=== PATIENT | female | born 1980 | race African-American/Black ===

== ENCOUNTER 2018-09-18 16:10 | Emergency (ER) | payer SELFPAY ==
[~2018-09-18] VITALS: Ht 157.5 cm; Wt 77.1 kg
[2018-09-18] MEDS ORDERED: diphenhydrAMINE 50 MG/ML VIAL IVP ONE (16:45)
[2018-09-18] MEDS ORDERED: IV NORMAL SALINE 1000ML BAG 1,000 ML IV ONE (16:45)
[2018-09-18] MEDS ORDERED: METOCLOPRAMIDE HCL 10 MG/2 ML VIAL. IV ONE (16:45)
--- NOTE | 2018-09-18 16:46 | PHYS DOC ---
Adult General Chief Complaint Chief Complaint: HEADACHE HPI HPI Patient is a 37 year old female presented to ER today for evaluation of headache for the last 3 days. Patient said the light and noise makes her headache worse. Patient denies any fever, no neck pain, no injury. Patient denies any low vision. Review of Systems Review of Systems Constitutional: Denies fever or chills [] Eyes: Denies change in visual acuity, redness, or eye pain. HENT: Denies nasal congestion or sore throat [] Respiratory: Denies cough or shortness of breath [] Cardiovascular: No additional information not addressed in HPI [] GI: Denies abdominal pain, nausea, vomiting, bloody stools or diarrhea [] : Denies dysuria or hematuria [] Musculoskeletal: Denies back pain or joint pain [] Integument: Denies rash or skin lesions [] Neurologic: Positive for headache, no focal weakness or sensory changes [] Endocrine: Denies polyuria or polydipsia [] All other systems were reviewed and found to be within normal limits, except as documented in this note. Current Medications Current Medications Current Medications Medications (Trade) Dose Ordered Sig/Jackie Start Time Stop Time Status Last Admin Dose Admin Diphenhydramine HCl (Benadryl) 25 mg 1X ONCE 09/18/18 16:45 09/18/18 17:33 DC 09/18/18 17:36 25 MG Ketorolac Tromethamine (Toradol 30mg Vial) 30 mg 1X ONCE 09/18/18 17:30 09/18/18 17:33 DC 09/18/18 17:39 30 MG Metoclopramide HCl (Reglan Vial) 10 mg 1X ONCE 09/18/18 16:45 09/18/18 17:33 DC 09/18/18 17:35 10 MG Sodium Chloride 1,000 ml @ 1,000 mls/hr 1X ONCE 09/18/18 16:45 09/18/18 17:44 DC 09/18/18 17:06 1,000 MLS/HR Allergies Allergies Allergies Coded Allergies Type Severity Reaction Last Updated Verified No Known Drug Allergies 09/18/18 No Physical Exam Physical Exam Constitutional: Well developed, well nourished, no acute distress, non-toxic appearance. [] HENT: Normocephalic, atraumatic, bilateral external ears normal, oropharynx moist, no oral exudates, nose normal. [] Eyes: PERRLA, EOMI, conjunctiva normal, no discharge. [] Neck: Normal range of motion, no tenderness, supple, no stridor. [] Cardiovascular:Heart rate regular rhythm, no murmur [] Lungs & Thorax: Bilateral breath sounds clear to auscultation [] Abdomen: Bowel sounds normal, soft, no tenderness, no masses, no pulsatile masses. [] Skin: Warm, dry, no erythema, no rash. [] Back: No tenderness, no CVA tenderness. [] Extremities: No tenderness, no cyanosis, no clubbing, ROM intact, no edema. [] Neurologic: Alert and oriented X 3, normal motor function, normal sensory function, no focal deficits noted. [] Psychologic: Affect normal, judgement normal, mood normal. [] Current Patient Data Vital Signs Vital Signs Date Time Temp Pulse Resp B/P (MAP) Pulse Ox O2 Delivery O2 Flow Rate FiO2 09/18/18 16:44 100.4 87 17 184/105 (131) 99 Room Air 100.4 EKG EKG [] Radiology/Procedures Radiology/Procedures [] Course & Med Decision Making Course & Med Decision Making Pertinent Labs and Imaging studies reviewed. (See chart for details) Patient was given medication in the ER, she feel much better. CT scan of her head was normal. Dragon Disclaimer Dragon Disclaimer This electronic medical record was generated, in whole or in part, using a voice recognition dictation system. Departure Departure Impression: Primary Impression: Headache Disposition: 01 HOME, SELF-CARE Condition: IMPROVED Referrals: NO PCP (PCP) follow up with your doctor as needed Patient Instructions: General Headache Without Cause Scripts Butalbital/Aspirin/Caffeine (FIORINAL 50-325-40 MG CAPSULE) 1 Each Capsule 1 EACH PO Q4HRS PRN for HEADACHE, #20 CAP Prov: HEBERT MENDEZ DO 09/18/18 HEBERT MENDEZ DO Sep 18, 2018 16:46
--- NOTE | 2018-09-18 17:19 | RAD ---
CT HEAD WO CONTRAST History: Headache for 3 days Comparison: None. Technique: Noncontrast CT imaging was performed of the head. Exposure: One or more of the following individualized dose reduction techniques were utilized for this examination: 1. Automated exposure control 2. Adjustment of the mA and/or kV according to patient size 3. Use of iterative reconstruction technique. Findings: No acute extra-axial or parenchymal hemorrhage is identified. There is no significant intra-axial mass effect, midline shift, or extra-axial fluid collection. The drake-white differentiation of the major vascular territories is preserved. The ventricles, sulci, and cisterns are within normal limits in size and configuration. The mastoid air cells and the visualized paranasal sinuses are aerated. No acute calvarial abnormality is identified. Impression: 1. No acute intracranial abnormality is identified. Electronically signed by: Erwin Chowdhury MD (09/18/2018 5:17 PM) [id number]
[2018-09-18] MEDS ORDERED: KETOROLAC 30 MG/ML VIAL. IV ONE (17:30)
[2018-09-18 17:58] VITALS: BP 134/77
[2018-09-18] MEDS ORDERED: BUTA1CAP31 PO (18:02)
== END 2018-09-18 18:12 | disposition home or self-care (01) ==
LOC: ER 16:10
DX: R51 Headache (principal)
CPT/HCPCS: 70450; 96374; 96375; 99284; J1200; J1885; J2765; J7030

== ENCOUNTER 2019-10-14 11:47 | Emergency (ER) | payer SELFPAY ==
[~2019-10-14] VITALS: Ht 152.4 cm; Wt 81.6 kg
[~2019-10-14 11:47] MED LIST: BUTA1CAP31 PO
[2019-10-14 12:46] LABS: BILIRUBIN,URINE SMALL (NEG); CLARITY,URINE TURBID; NITRITE,URINE NEGATIVE (NEG); PROTEIN,URINE NEGATIVE (NEG-TRACE)
[2019-10-14] MEDS ORDERED: IV NORMAL SALINE 1000ML BAG 1,000 ML IV ONE (13:00)
[2019-10-14] MEDS ORDERED: fentaNYL PF VIAL 100 MCG/2 ML VIAL IV ONE (13:00)
[2019-10-14] MEDS ORDERED: ONDANSETRON PF 4 MG/2 ML VIAL. IV ONE (13:00)
[2019-10-14 13:01] LABS: COLOR,URINE YELLOW
[2019-10-14 13:02] LABS: SQUAMOUS EPITHELIAL CELL,UR MANY /LPF
[2019-10-14 13:03] LABS: BACTERIA,URINE 0 /HPF (0-FEW); RBC,URINE 20-40 /HPF (0-2)
[2019-10-14 13:47] LABS: BASO % 0 % (0-3); EOS # 0.1 x10^3/uL (0.0-0.7); EOS % 1 % (0-3); HEMATOCRIT 43.2 % (36.0-47.0); HEMOGLOBIN 14.3 g/dL (12.0-15.5); LYMPH # 2.9 x10^3/uL (1.0-4.8); LYMPH % 31 % (24-48); MEAN CORPUSCULAR HEMOGLOBIN 27 pg (25-35); MEAN CORPUSCULAR HGB CONC 33 g/dL (31-37); MEAN CORPUSCULAR VOLUME 82 fL (79-100); MONO # 0.6 x10^3/uL (0.0-1.1); MONO % 6 % (0-9); NEUT # 5.7 x10^3/uL (1.8-7.7); NEUT % 62 % (31-73); PLATELET COUNT 335 x10^3/uL (140-400); RED BLOOD COUNT 5.25 x10^6/uL (3.50-5.40); RED CELL DISTRIBUTION WIDTH 13.8 % (11.5-14.5); WHITE BLOOD COUNT 9.3 x10^3/uL (4.0-11.0)
[2019-10-14 13:52] VITALS: BP 150/98
--- NOTE | 2019-10-14 13:54 | RAD ---
Examination: Ultrasound abdomen limited HISTORY: History of right upper quadrant pain COMPARISON: None available FINDINGS: The pancreas is not well-visualized.The liver length measures 14.5 cm. No evidence of gallstones. The common bile duct measures 3 mm in diameter.The right kidney measures 11.7 x 4.8 x 5.1 cm. The visualized IVC is within normal limits of dimension. IMPRESSION: Unremarkable exam. Electronically signed by: Garret Beatty MD (10/14/2019 1:51 PM) [id number]
[2019-10-14 13:57] LABS: CALCIUM 9.3 mg/dL (8.5-10.1); CREATININE 0.8 mg/dL (0.6-1.0); GFR 97.7; POTASSIUM 3.8 mmol/L (3.5-5.1)
[2019-10-14 14:03] LABS: ALBUMIN 3.8 g/dL (3.4-5.0); ALBUMIN/GLOBULIN RATIO 0.8 (1.0-1.7); MAGNESIUM 1.8 mg/dL (1.8-2.4); TOTAL BILIRUBIN 0.5 mg/dL (0.2-1.0); TOTAL PROTEIN 8.3 g/dL (6.4-8.2)
--- NOTE | 2019-10-14 14:04 | PHYS DOC ---
Past Medical History Past Medical History: No Pertinent History Past Surgical History: Colectomy, Splenectomy Additional Past Surgical Histo: TRAUMATIC INJURY OF ABDOMEN Smoking Status: Current Every Day Smoker Alcohol Use: None Drug Use: Marijuana General Adult EDM: Chief Complaint: BACK INJURY HPI: HPI: Patient is a 38 year old [f__sex] who presents with [] Review of Systems: Review of Systems: Constitutional: Denies fever or chills. [] Eyes: Denies change in visual acuity. [] HENT: Denies nasal congestion or sore throat. [] Respiratory: Denies cough or shortness of breath. [] Cardiovascular: Denies chest pain or edema. [] GI: Denies abdominal pain, nausea, vomiting, bloody stools or diarrhea. [] : Denies dysuria. [] Musculoskeletal: Denies back pain or joint pain. [] Integument: Denies rash. [] Neurologic: Denies headache, focal weakness or sensory changes. [] Endocrine: Denies polyuria or polydipsia. [] Lymphatic: Denies swollen glands. [] Psychiatric: Denies depression or anxiety. [] Heart Score: Risk Factors: Risk Factors: DM, Current or recent (<one month) smoker, HTN, HLP, family history of CAD, obesity. Risk Scores: Score 0 - 3: 2.5% MACE over next 6 weeks - Discharge Home Score 4 - 6: 20.3% MACE over next 6 weeks - Admit for Clinical Observation Score 7 - 10: 72.7% MACE over next 6 weeks - Early Invasive Strategies Current Medications: Current Medications Medications (Trade) Dose Ordered Sig/[facility] Start Time Stop Time Status Last Admin Dose Admin Fentanyl Citrate (Fentanyl 2ml Vial) 50 mcg 1X ONCE 10/14/19 13:00 10/14/19 13:01 DC 10/14/19 13:07 50 MCG Ondansetron HCl (Zofran) 4 mg 1X ONCE 10/14/19 13:00 10/14/19 13:01 DC 10/14/19 13:07 4 MG Sodium Chloride 1,000 ml @ 1,000 mls/hr 1X ONCE 10/14/19 13:00 10/14/19 13:59 DC 10/14/19 13:07 1,000 MLS/HR Allergies: Allergies: Allergies Coded Allergies Type Severity Reaction Last Updated Verified No Known Drug Allergies 09/18/18 No Physical Exam: PE: Constitutional: Well developed, well nourished, no acute distress, non-toxic appearance. [] HENT: Normocephalic, atraumatic, bilateral external ears normal, oropharynx moist, no oral exudates, nose normal. [] Eyes: PERRLA, EOMI, conjunctiva normal, no discharge. [] Neck: Normal range of motion, no tenderness, supple, no stridor. [] Cardiovascular:Heart rate regular rhythm, no murmur [] Lungs & Thorax: Bilateral breath sounds clear to auscultation [] Abdomen: Bowel sounds normal, soft, no tenderness, no masses, no pulsatile masses. [] Skin: Warm, dry, no erythema, no rash. [] Back: No tenderness, no CVA tenderness. [] Extremities: No tenderness, no cyanosis, no clubbing, ROM intact, no edema. [] Neurologic: Alert and oriented X 3, normal motor function, normal sensory function, no focal deficits noted. [] Psychologic: Affect normal, judgement normal, mood normal. [] Current Patient Data: Labs: Laboratory Tests Test 10/14/19 12:30 10/14/19 12:40 10/14/19 13:15 Urine Collection Type Unknown Urine Color Yellow Urine Clarity Turbid Urine pH 6.0 (<5.0-8.0) Urine Specific Chambers 1.025 (1.000-1.030) Urine Protein Negative mg/dL (NEG-TRACE) Urine Glucose (UA) Negative mg/dL (NEG) Urine Ketones (Stick) Trace mg/dL (NEG) Urine Blood Small (NEG) Urine Nitrite Negative (NEG) Urine Bilirubin Small (NEG) Urine Urobilinogen Dipstick 2.0 mg/dL (0.2 mg/dL) Urine Leukocyte Esterase Small (NEG) Urine RBC 20-40 /HPF (0-2) Urine WBC 1-4 /HPF (0-4) Urine Squamous Epithelial Cells Many /LPF Urine Bacteria 0 /HPF (0-FEW) Urine Mucus Marked /LPF POC Urine HCG, Qualitative Hcg negative (Negative) White Blood Count 9.3 x10^3/uL (4.0-11.0) Red Blood Count 5.25 x10^6/uL (3.50-5.40) Hemoglobin 14.3 g/dL (12.0-15.5) Hematocrit 43.2 % (36.0-47.0) Mean Corpuscular Volume 82 fL (79-100) Mean Corpuscular Hemoglobin 27 pg (25-35) Mean Corpuscular Hemoglobin Concent 33 g/dL (31-37) Red Cell Distribution Width 13.8 % (11.5-14.5) Platelet Count 335 x10^3/uL (140-400) Neutrophils (%) (Auto) 62 % (31-73) Lymphocytes (%) (Auto) 31 % (24-48) Monocytes (%) (Auto) 6 % (0-9) Eosinophils (%) (Auto) 1 % (0-3) Basophils (%) (Auto) 0 % (0-3) Neutrophils # (Auto) 5.7 x10^3/uL (1.8-7.7) Lymphocytes # (Auto) 2.9 x10^3/uL (1.0-4.8) Monocytes # (Auto) 0.6 x10^3/uL (0.0-1.1) Eosinophils # (Auto) 0.1 x10^3/uL (0.0-0.7) Basophils # (Auto) 0.0 x10^3/uL (0.0-0.2) Sodium Level 140 mmol/L (136-145) Potassium Level 3.8 mmol/L (3.5-5.1) Chloride Level 100 mmol/L (98-107) Carbon Dioxide Level 27 mmol/L (21-32) Anion Gap 13 (6-14) Blood Urea Nitrogen 8 mg/dL (7-20) Creatinine 0.8 mg/dL (0.6-1.0) Estimated GFR (Cockcroft-Gault) 97.7 BUN/Creatinine Ratio 10 (6-20) Glucose Level 105 mg/dL (70-99) H Calcium Level 9.3 mg/dL (8.5-10.1) Magnesium Level Pending Total Bilirubin Pending Aspartate Amino Transferase (AST) Pending Alanine Aminotransferase (ALT) Pending Alkaline Phosphatase Pending Total Protein Pending Albumin Pending Albumin/Globulin Ratio Pending Lipase Pending Laboratory Tests 10/14/19 13:15 Laboratory Tests 10/14/19 13:15 Vital Signs: Vital Signs Date Time Temp Pulse Resp B/P (MAP) Pulse Ox O2 Delivery O2 Flow Rate FiO2 10/14/19 11:55 98.9 102 16 137/103 (114) 100 Room Air 98.9 EKG: EKG: [] Radiology/Procedures: Radiology/Procedures: PROCEDURE: ABDOMEN LTD Examination: Ultrasound abdomen limited HISTORY: History of right upper quadrant pain COMPARISON: None available FINDINGS: The pancreas is not well-visualized.The liver length measures 14.5 cm. No evidence of gallstones. The common bile duct measures 3 mm in diameter.The right kidney measures 11.7 x 4.8 x 5.1 cm. The visualized IVC is within normal limits of dimension. IMPRESSION: Unremarkable exam.[] PROCEDURE: CT ABDOMEN PELVIS WO CONTRAST EXAM: CT Abdomen and Pelvis without IV contrast INDICATION: Right flank pain and hematuria. TECHNIQUE: Multi-detector row CT images were acquired from the lung bases through the abdomen and pelvis without the use of IV contrast. Sagittal and coronal images were acquired from the transaxial data. All CT scans performed at this facility utilize dose optimization techniques as appropriate to the exam, including the following: Automated exposure control and adjustment of the mA and/or KV according to patient size (this includes techniques or standardized protocols for targeted exams where dose is indication/reason for exam). ORAL CONTRAST: None COMPARISON: Limited abdominal ultrasound of the same day FINDINGS: The absence of IV contrast limits evaluation of soft tissue pathology. LOWER CHEST: Unremarkable LIVER: Unremarkable BILIARY SYSTEM: Gallbladder is unremarkable. Bile ducts are not dilated. PANCREAS: Masslike soft tissue fullness to the pancreatic head is evident. SPLEEN: Unremarkable ADRENALS: Unremarkable KIDNEYS & URETERS: Unremarkable BLADDER: Unremarkable REPRODUCTIVE ORGANS: Bilateral ovarian enlargement measuring 4.8 cm on the right and 4.9 cm on the left is present. The uterus appears unremarkable. GASTROINTESTINAL: There is evidence of previous bowel surgery in the left upper quadrant. No findings of bowel obstruction or perforation. There is mild wall thickening in the gastric antrum. The appendix shows borderline thickening of the midportion to 8 mm without associated periappendiceal soft tissue stranding. MESENTERY/PERITONEUM/RETROPERITONEUM: Soft tissue stranding around the celiac axis and SMA is present. VASCULAR: Unremarkable LYMPH NODES: There are enlarged mesenteric and retroperitoneal lymph nodes, such as a 10 mm right common iliac lymph node on axial image 132 of series 2. OSSEOUS & SOFT TISSUES: Unremarkable IMPRESSION: 1. No evidence of urinary tract obstruction or kidney stones on noncontrast CT imaging. No specific findings to explain hematuria is identified. 2. There is nonspecific fullness to the pancreatic head with retroperitoneal soft tissue stranding that could represent acute pancreatitis or sequelae of a pancreatic head mass. Recommend contrast enhanced CT imaging on abdominal MRI with MRCP when clinically feasible in further evaluation. 3. Upper normal thickness to the appendix without periappendiceal soft tissue stranding or inflammation. 4. Bilateral enlarged ovaries. Although this could be a reflection of ovarian hyperstimulation or bilateral dermoids, further imaging evaluation by pelvic ultrasound to assess for ovarian torsion could be beneficial. Discussed with the ordering provider Efren Molina by telephone at 2:48 PM on 10/14/2019 PROCEDURE: CT ABD PELV W/ IV CONTRST ONLY Exam: CT of abdomen and pelvis without and with contrast INDICATION: Right flank pain and hematuria TECHNIQUE: Sequential axial images through the abdomen and pelvis obtained before and after the administration of 75 mL of Omni 300 IV contrast. Sagittal and coronal reformatted images were reconstructed from the axial data and reviewed. Comparisons: CT abdomen pelvis without contrast same day FINDINGS: Heart size is normal. No pericardial effusion. Visualized lung bases are clear. No pleural effusion. Liver, spleen, gallbladder and adrenals are unremarkable. Redemonstrated mild fullness of the pancreatic head. There is no pancreatic ductal dilatation. Mild adjacent haziness in the peripancreatic fat surrounding the pancreatic head. No peripancreatic fluid collection. Kidneys demonstrate symmetric enhancement. No perinephric inflammation or hydronephrosis. No renal or ureteral calculi are identified. Bladder is decompressed not well evaluated. Uterus is nonenlarged. Bilateral cystic lesions at the adnexa bilaterally, likely cystic change at the ovaries. Post surgical changes involving the left lower quadrant small bowel is noted. Large and small bowel are unremarkable. No free intra-abdominal air or fluid. No obstruction. Abdominal aorta has a normal course and caliber. Abdominal vasculature is patent. No enlarged intra-abdominal lymph nodes are identified. IMPRESSION: 1. No discrete pancreatic mass identified. 2. Again demonstrated fullness at the pancreatic head with mild adjacent peripancreatic fat haziness. Correlate with lipase for acute pancreatitis. 3. Other persistent findings as described above. Course & Med Decision Making: Course & Med Decision Making Pertinent Labs and Imaging studies reviewed. (See chart for details) 1444- Call from Dr. Moore [] Shanda Disclaimer: Shanda Disclaimer: This electronic medical record was generated, in whole or in part, using a voice recognition dictation system. Departure Departure Impression: Primary Impression: Abdominal pain, RUQ (right upper quadrant) Additional Impressions: N&V (nausea and vomiting) Qualified Codes: R11.2 - Nausea with vomiting, unspecified Strain of lumbar paraspinal muscle Qualified Codes: S39.012A - Strain of muscle, fascia and tendon of lower back, initial encounter Dysmenorrhea Disposition: HOME, SELF-CARE Condition: STABLE Referrals: NO PCP (PCP) JACOB PINEDO Jr, MD Patient Instructions: Abdominal Pain (Nonspecific), Back Pain, Adult, [id number], Dysmenorrhea, [id number], Nausea and Vomiting, [id number] Additional Instructions: Fill prescriptions and take as directed. Activity as tolerated. Follow up with Dr. Pinedo about your irregular menstrual cycles. Recommend clear liquids for 24 hours then try bland foods like bananas, rice, toast, and applesauce, advance your diet as tolerated. Try taking [id number] pepcid 20 mg at bedtime daily for 1-2 weeks to help with abdominal pain. Return to the ER if your symptoms worsen or you develop a fever. Scripts Cyclobenzaprine Hcl (CYCLOBENZAPRINE HCL) 10 Mg Tablet 1 TAB PO TID PRN for PAIN for 10 Days, #30 TAB 0 Refills Prov: PARADISE TROY APRN 10/14/19 Ondansetron (ONDANSETRON ODT) 4 Mg Tab.rapdis 1 TAB PO PRN Q6-8HRS PRN for NAUSEA/VOMITING, #16 TAB 0 Refills Prov: PARADISE TROY DRY MILL OPERATOR 10/14/19 PARADISE TROY DRY MILL OPERATOR Oct 14, 2019 14:04
[2019-10-14] MEDS ORDERED: KETOROLAC 15 MG/ML VIAL. IV ONE (14:15)
--- NOTE | 2019-10-14 14:52 | RAD ---
EXAM: CT Abdomen and Pelvis without IV contrast INDICATION: Right flank pain and hematuria. TECHNIQUE: Multi-detector row CT images were acquired from the lung bases through the abdomen and pelvis without the use of IV contrast. Sagittal and coronal images were acquired from the transaxial data. All CT scans performed at this facility utilize dose optimization techniques as appropriate to the exam, including the following: Automated exposure control and adjustment of the mA and/or KV according to patient size (this includes techniques or standardized protocols for targeted exams where dose is indication/reason for exam). ORAL CONTRAST: None COMPARISON: Limited abdominal ultrasound of the same day FINDINGS: The absence of IV contrast limits evaluation of soft tissue pathology. LOWER CHEST: Unremarkable LIVER: Unremarkable BILIARY SYSTEM: Gallbladder is unremarkable. Bile ducts are not dilated. PANCREAS: Masslike soft tissue fullness to the pancreatic head is evident. SPLEEN: Unremarkable ADRENALS: Unremarkable KIDNEYS & URETERS: Unremarkable BLADDER: Unremarkable REPRODUCTIVE ORGANS: Bilateral ovarian enlargement measuring 4.8 cm on the right and 4.9 cm on the left is present. The uterus appears unremarkable. GASTROINTESTINAL: There is evidence of previous bowel surgery in the left upper quadrant. No findings of bowel obstruction or perforation. There is mild wall thickening in the gastric antrum. The appendix shows borderline thickening of the midportion to 8 mm without associated periappendiceal soft tissue stranding. MESENTERY/PERITONEUM/RETROPERITONEUM: Soft tissue stranding around the celiac axis and SMA is present. VASCULAR: Unremarkable LYMPH NODES: There are enlarged mesenteric and retroperitoneal lymph nodes, such as a 10 mm right common iliac lymph node on axial image 132 of series 2. OSSEOUS & SOFT TISSUES: Unremarkable IMPRESSION: 1. No evidence of urinary tract obstruction or kidney stones on noncontrast CT imaging. No specific findings to explain hematuria is identified. 2. There is nonspecific fullness to the pancreatic head with retroperitoneal soft tissue stranding that could represent acute pancreatitis or sequelae of a pancreatic head mass. Recommend contrast enhanced CT imaging on abdominal MRI with MRCP when clinically feasible in further evaluation. 3. Upper normal thickness to the appendix without periappendiceal soft tissue stranding or inflammation. 4. Bilateral enlarged ovaries. Although this could be a reflection of ovarian hyperstimulation or bilateral dermoids, further imaging evaluation by pelvic ultrasound to assess for ovarian torsion could be beneficial. Discussed with the ordering provider Efren Molina by telephone at 2:48 PM on 10/14/2019 Electronically signed by: Isabel Moore MD (10/14/2019 2:49 PM) [id number]
[2019-10-14] MEDS ORDERED: IOHEXOL 300 MG/ML 100ML VIAL. IV ONE (16:00)
--- NOTE | 2019-10-14 16:13 | RAD ---
Exam: CT of abdomen and pelvis without and with contrast INDICATION: Right flank pain and hematuria TECHNIQUE: Sequential axial images through the abdomen and pelvis obtained before and after the administration of 75 mL of Omni 300 IV contrast. Sagittal and coronal reformatted images were reconstructed from the axial data and reviewed. Comparisons: CT abdomen pelvis without contrast same day FINDINGS: Heart size is normal. No pericardial effusion. Visualized lung bases are clear. No pleural effusion. Liver, spleen, gallbladder and adrenals are unremarkable. Redemonstrated mild fullness of the pancreatic head. There is no pancreatic ductal dilatation. Mild adjacent haziness in the peripancreatic fat surrounding the pancreatic head. No peripancreatic fluid collection. Kidneys demonstrate symmetric enhancement. No perinephric inflammation or hydronephrosis. No renal or ureteral calculi are identified. Bladder is decompressed not well evaluated. Uterus is nonenlarged. Bilateral cystic lesions at the adnexa bilaterally, likely cystic change at the ovaries. Post surgical changes involving the left lower quadrant small bowel is noted. Large and small bowel are unremarkable. No free intra-abdominal air or fluid. No obstruction. Abdominal aorta has a normal course and caliber. Abdominal vasculature is patent. No enlarged intra-abdominal lymph nodes are identified. IMPRESSION: 1. No discrete pancreatic mass identified. 2. Again demonstrated fullness at the pancreatic head with mild adjacent peripancreatic fat haziness. Correlate with lipase for acute pancreatitis. 3. Other persistent findings as described above. Exposure: One or more of the following in the visualized dose reduction techniques were utilized for this examination: 1. Automated exposure control 2. Adjustment of the MA and/or KV according to patient size 3. Use of iterative of reconstructive technique Electronically signed by: Janell Melvin MD (10/14/2019 4:10 PM) [id number]
[2019-10-14] MEDS ORDERED: CYCL10TA2 PO (16:45)
[2019-10-14] MEDS ORDERED: ONDA4TAB12 PO (16:45)
== END 2019-10-14 16:54 | disposition home or self-care (01) ==
LOC: ER 11:47
DX: S39.012A Strain of muscle, fascia and tendon of lower back, initial encounter (principal); R10.11 Right upper quadrant pain; N94.6 Dysmenorrhea, unspecified; R11.2 Nausea with vomiting, unspecified; F17.200 Nicotine dependence, unspecified, uncomplicated; F12.90 Cannabis use, unspecified, uncomplicated; Z90.89 Acquired absence of other organs; Z98.890 Other specified postprocedural states; V89.2XXA Person injured in unspecified motor-vehicle accident, traffic, initial encounter; Y93.89 Activity, other specified; Y92.89 Other specified places as the place of occurrence of the external cause; Y99.8 Other external cause status
CPT/HCPCS: 36415; 74176; 74177; 76705; 80053; 81001; 81025; 83690; 83735; 85025; 87086; 96361; 96374; 96375; 99285; J1885; J2060; J2405; J3010; J7030; Q9967

== ENCOUNTER 2020-12-29 14:31 | Emergency (ER) | payer SELFPAY ==
[~2020-12-29] VITALS: Ht 167.6 cm; Wt 79.5 kg
[~2020-12-29 14:31] MED LIST changes: +CYCL10TA2 PO; +ONDA4TAB12 PO
[2020-12-29 15:17] LABS: BASO % 1 % (0-3); EOS # 0.1 x10^3/uL (0.0-0.7); EOS % 1 % (0-3); HEMATOCRIT 36.3 % (36.0-47.0); HEMOGLOBIN 12.1 g/dL (12.0-15.5); LYMPH # 2.2 x10^3/uL (1.0-4.8); LYMPH % 31 % (24-48); MEAN CORPUSCULAR HEMOGLOBIN 27 pg (25-35); MEAN CORPUSCULAR HGB CONC 34 g/dL (31-37); MEAN CORPUSCULAR VOLUME 80 fL (79-100); MONO # 0.4 x10^3/uL (0.0-1.1); MONO % 5 % (0-9); NEUT # 4.4 x10^3/uL (1.8-7.7); NEUT % 63 % (31-73); PLATELET COUNT 279 x10^3/uL (140-400); RED BLOOD COUNT 4.51 x10^6/uL (3.50-5.40); RED CELL DISTRIBUTION WIDTH 16.4 % (11.5-14.5)
[2020-12-29 15:33] LABS: CALCIUM 9.3 mg/dL (8.5-10.1); GFR 74.7; POTASSIUM 3.5 mmol/L (3.5-5.1)
[2020-12-29 15:40] LABS: ALBUMIN 3.7 g/dL (3.4-5.0); ALBUMIN/GLOBULIN RATIO 0.9 (1.0-1.7); TOTAL BILIRUBIN 0.8 mg/dL (0.2-1.0); TOTAL PROTEIN 7.7 g/dL (6.4-8.2)
[2020-12-29] MEDS ORDERED: CONTRAST GIVEN. MC PRN (15:45)
[2020-12-29] MEDS ORDERED: IOHEXOL 350 MG/ML 100 ML VIAL. IV ONE (15:45)
--- NOTE | 2020-12-29 16:03 | RAD ---
EXAM: CT angiography of the chest with intravenous contrast. HISTORY: Shortness of breath. TECHNIQUE: Computed tomographic images of the chest were obtained following the administration of int ravenous contrast according to angiography protocol. Multiplanar reformatting was performed and three dimensional maximum intensity projection images were obtained. *One or more of the following individualized dose reduction techniques were utilized for this examina tion: 1. Automated exposure control. 2. Adjustment of the mA and/or kV according to patient size. 3. Use of iterative reconstruction technique. COMPARISON: None. FINDINGS: The exam is extremely limited due to patient motion and suboptimal contrast opacification o f the distal pulmonary arteries. No central embolism is seen. However, the possibility of a segmental or subsegmental embolism is not excluded on this exam. The thoracic aorta is normal in caliber. Ther e is a bovine aortic arch branching pattern, a normal variant. There is a prominent subcarinal lymph node or fluid within the pericardial recess, difficult to assess given motion. There is no pneumothor ax or pleural effusion. There is no consolidation. There is bilateral lower lobe predominant groundgl ass opacity with septal line thickening suggesting interstitial infiltrate. There is lingular atelect asis or scarring. There is hepatomegaly and hepatic steatosis. There is no acute osseous finding. IMPRESSION: 1. Severely limited exam due to patient motion and suboptimal contrast opacification of the pulmonary arteries. No central pulmonary embolism is seen. The possibly distal embolism is not excluded on thi s exam. 2. Suspected bilateral lower lobe predominant interstitial infiltrate. There is no consolidated pneum onia. 3. Hepatomegaly and hepatic steatosis. 4. Prominent subcarinal lymph node or fluid within a pericardial recess. Electronically signed by: Kellie Mcgee MD (12/29/2020 4:00 PM) [id number]
[2020-12-29 17:03] VITALS: BP 175/106
[2020-12-29] MEDS ORDERED: PRED50TA PO (17:10)
[2020-12-29] MEDS ORDERED: HYDR-2145 PO (17:10)
[2020-12-29] MEDS ORDERED: AZIT250T PO (17:10)
--- NOTE | 2020-12-29 17:11 | ED.ADGEN ---
Past Medical History Past Medical History: No Pertinent History Past Surgical History: Colectomy, Splenectomy Additional Past Surgical Histo: TRAUMATIC INJURY OF ABDOMEN Smoking Status: Current Every Day Smoker Alcohol Use: None Drug Use: Marijuana General Adult EDM: Chief Complaint: ANXIETY/PANIC ATTACK HPI: HPI: Patient is a 40-year-old female with no known past medical history who presents to the emergency room complaining of chest pain and shortness of breath. Patient states that she started having this chest tightness last night with some mild shortness of breath. She has had a mild cough but denies any kind of fever. She states she was feeling better this morning so she went to work. At some point at work patient started having what appeared to be a panic attack and they called her . He brought her to the emergency room here and upon arrival patient had a presyncopal episode. Upon arrival to the emergency room patient is panicked and crying. She states she is short of breath and her chest hurts. She has never had anything like this previously. She has not seen a physician in several years. Review of Systems: Review of Systems: Complete ROS is negative unless otherwise documented in HPI Current Medications: Current Medications Medications (Trade) Dose Ordered Sig/Jackie Start Time Stop Time Status Last Admin Dose Admin Dexamethasone Sodium Phosphate (Decadron) 10 mg 1X ONCE 12/29/20 17:15 12/29/20 17:16 Info (CONTRAST GIVEN -- Rx MONITORING) 1 each PRN DAILY PRN 12/29/20 15:45 12/31/20 15:44 Iohexol (Omnipaque 350 Mg/ml) 100 ml 1X ONCE 12/29/20 15:45 12/29/20 15:46 DC 12/29/20 15:52 100 ML Lorazepam (Ativan Inj) 1 mg 1X ONCE 12/29/20 15:00 12/29/20 15:01 DC Allergies: Allergies: Allergies Coded Allergies Type Severity Reaction Last Updated Verified No Known Drug Allergies 09/18/18 No Physical Exam: PE: General: Awake, alert, moderate distress, anxious HEENT: Atraumatic, EOMI, PERRL, airway patent, moist oral mucosa Neck: Supple, trachea midline Respiratory: CTA bilaterally, tachypnea, no wheezing CV: Tachycardia, no murmur, cap refill <2 GI: Soft, nondistended, nontender, no masses MSK: No obvious deformities Skin: Warm, dry, intact Neuro: A&O x3, speech NL, sensory and motor grossly intact, no focal deficits Psych: Anxious, tearful, not suicidal or homicidal Current Patient Data: Labs: Laboratory Tests Test 12/29/20 14:36 12/29/20 14:46 12/29/20 15:10 Glucose (Fingerstick) 108 mg/dL (70-99) H White Blood Count 7.0 x10^3/uL (4.0-11.0) Red Blood Count 4.51 x10^6/uL (3.50-5.40) Hemoglobin 12.1 g/dL (12.0-15.5) Hematocrit 36.3 % (36.0-47.0) Mean Corpuscular Volume 80 fL (79-100) Mean Corpuscular Hemoglobin 27 pg (25-35) Mean Corpuscular Hemoglobin Concent 34 g/dL (31-37) Red Cell Distribution Width 16.4 % (11.5-14.5) H Platelet Count 279 x10^3/uL (140-400) Neutrophils (%) (Auto) 63 % (31-73) Lymphocytes (%) (Auto) 31 % (24-48) Monocytes (%) (Auto) 5 % (0-9) Eosinophils (%) (Auto) 1 % (0-3) Basophils (%) (Auto) 1 % (0-3) Neutrophils # (Auto) 4.4 x10^3/uL (1.8-7.7) Lymphocytes # (Auto) 2.2 x10^3/uL (1.0-4.8) Monocytes # (Auto) 0.4 x10^3/uL (0.0-1.1) Eosinophils # (Auto) 0.1 x10^3/uL (0.0-0.7) Basophils # (Auto) 0.0 x10^3/uL (0.0-0.2) Sodium Level 140 mmol/L (136-145) Potassium Level 3.5 mmol/L (3.5-5.1) Chloride Level 102 mmol/L (98-107) Carbon Dioxide Level 25 mmol/L (21-32) Anion Gap 13 (6-14) Blood Urea Nitrogen 9 mg/dL (7-20) Creatinine 1.0 mg/dL (0.6-1.0) Estimated GFR (Cockcroft-Gault) 74.7 BUN/Creatinine Ratio 9 (6-20) Glucose Level 102 mg/dL (70-99) H Calcium Level 9.3 mg/dL (8.5-10.1) Total Bilirubin 0.8 mg/dL (0.2-1.0) Aspartate Amino Transferase (AST) 11 U/L (15-37) L Alanine Aminotransferase (ALT) 15 U/L (14-59) Alkaline Phosphatase 59 U/L (46-116) Troponin I Quantitative 0.029 ng/mL (0.000-0.055) XW-Ebx-P-Type Natriuretic Peptide 3223 pg/mL (0-124) H Total Protein 7.7 g/dL (6.4-8.2) Albumin 3.7 g/dL (3.4-5.0) Albumin/Globulin Ratio 0.9 (1.0-1.7) L POC Urine HCG, Qualitative Hcg negative (Negative) Laboratory Tests 12/29/20 14:46 Laboratory Tests 12/29/20 14:46 EKG: EKG: [] Heart Score: C/O Chest Pain: Yes HEART Score for Chest Pain: HEART Score for Chest Pain Response (Comments) Value History Slighlty/Non-Suspicious 0 ECG Normal 0 Age < 45 0 Risk Factors No Risk Factors 0 Troponin < Normal Limit 0 Total 0 Risk Factors: Risk Factors: DM, Current or recent (<one month) smoker, HTN, HLP, family history of CAD, obesity. Risk Scores: Score 0 - 3: 2.5% MACE over next 6 weeks - Discharge Home Score 4 - 6: 20.3% MACE over next 6 weeks - Admit for Clinical Observation Score 7 - 10: 72.7% MACE over next 6 weeks - Early Invasive Strategies Radiology/Procedures: Radiology/Procedures: [] Course & Med Decision Making: Course & Med Decision Making Pertinent Labs and Imaging studies reviewed. (See chart for details) Patient is a 40-year-old female who presents to the emergency room with chest pain or shortness of breath. Upon arrival to the emergency room patient appears to be panicking and this appears to be the cause of most of her shortness of breath and chest pain. Patient's vitals are overall normal. Her pulse ox is 10 0% on room air. She is mildly tachycardic and hypertensive. Patient states she has not seen a physician in many years. She has had ongoing chest pain for the last 24 hours. Given patient's chest pain and shortness of breath she will be evaluated for any cardiac pathology, pulmonary embolism, pneumonia. CT angio of the chest is limited due to motion. She does not have a large vessel pulmonary embolism but they cannot rule out a distal embolism. Patient is not hypoxic at this time. She does appear to have bilateral infiltrates. This could be related to Covid. I have discussed this finding with the patient and her . Covid swabs will be done. Patient's became very upset and insistent that there is no way she had Covid. Patient has not been vaccinated. They state that they are very careful. At this time patient's chest pain and shortness of breath has mostly resolved. She is feeling significantly better and states that there is no way she could be admitted to the hospital. I think a pulmonary embolism is unlikely given her normal labs and current vitals. I have discussed all the findings of the CT with the patient. I have discussed with her that she needs to follow-up with a primary care physician. We will start her on hydrochlorothiazide for her hypertension. We have discussed that she should follow-up for that as well. We discussed signs and symptoms that would require her to return to the emergency room and patient states understanding. We discussed quarantine. Patient's test results and vitals while in the ED were fully reviewed and discussed with the patient. Patient is stable and at this time does not need admission to the hospital. We have discussed strict return precautions and the importance of following up with their Primary Care Physician. Patient stated understanding and was given an opportunity to ask any questions. Patient is in agreement with plan. Shanda Disclaimer: Shanda Disclaimer: This electronic medical record was generated, in whole or in part, using a voice recognition dictation system. Departure Departure Impression: Primary Impression: Person under investigation for COVID-19 Additional Impression: Anxiety Disposition: 01 HOME / SELF CARE / HOMELESS Condition: STABLE Referrals: NO PCP (PCP) Patient Instructions: Shortness of Breath Additional Instructions: Thank you for visiting [facility]. We appreciate you trusting us with your care. If any additional problems come up please don't hesitate to return to visit us. Follow up with your primary care provider so they can plan additional care if needed and know about the problem that you had today. If symptoms worsen come back to the Emergency Department. Any concerning symptoms that start such as chest pain, shortness of air, weakness or numbness on one side of the body, running high fevers or any other concerning symptoms return to the ER. You have a viral syndrome which may include symptoms like muscle aches, fevers, chills, runny nose, cough, sneezing, sore throat, nausea, vomiting, or diarrhea. One of the potential viruses that you may have is SARS-CoV-2, the virus that causes COVID-19, also known as the Coronavirus. You are just as likely to have a different viral infection such as the common cold, flu, etc. Most patients with the Coronavirus have mild symptoms and recover on their own. Resting, staying hydrated, and sleep based on known cases can be helpful. As of todays visit, you are well enough to go home and treat your symptoms with oral fluids and over the counter medications. Coronavirus testing is not performed on most people with mild symptoms who are being discharged from the emergency department. If Coronavirus testing was performed today the results will not be available for possibly up to 3-4 days. If your result is positive you will be contacted. Please follow the following precautions at home: 1. Stay home except to get medical care. 2. As advised by the CDC, we recommend that you stay in your home and minimize contact with other people. We do not want you to spread the infection. 3. Those who are older or have significant medical issues may have more severe symptoms from this infection. We recommend self-isolation FOR AT LEAST 7 DAYS after your 1st day of symptoms. AFTER you feel better please wait AT LEAST ANOTHER WEEK before returning to regular activities and being around other people. 4. IF you become sicker and have difficulty breathing, chest pain, are unable to eat/drink, severe vomiting, diarrhea, or weakness you may need to return to the Emergency Department. 5. You should restrict activities outside of your home, except for getting medical care. DO NOT go to work, school, or public areas. Avoid using public transportation, ride sharing, or taxis. 6. Separate yourself from other people in your home. You should use a separate bathroom if possible. 7. Avoid sharing personal household items such as dishes, cups, eating utensils, towels, etc. 8. Clean all high touch surfaces every day (door knobs, counter tops, etc). Use a household cleaning spray or wipe per label instructions. 9. Clean your hands often. Wash your hands with soap and water for at least 20 seconds. 10. Cover your mouth and nose when you cough or sneeze. 11. Throw used tissues in the trash and immediately wash your hands. For additional resources please visit the CDC website or the [facility] ([phone]), you may also call 211 for further information. Scripts Hydrochlorothiazide (HYDROCHLOROTHIAZIDE TABLET ) 25 Mg Tablet 25 MG PO DAILY for DIURETIC for 30 Days, #30 TAB 1 Refill Prov: SHANTEL LANDRY MD 12/29/20 Prednisone (PREDNISONE) 50 Mg Tablet 1 TAB PO DAILY, #5 TAB Prov: SHANTEL LANDRY MD 12/29/20 Azithromycin (ZITHROMAX) 250 Mg Tablet 1 PKG PO UD, #6 TAB Prov: SHANTEL LANDRY MD 12/29/20 Problem Qualifiers SHANTEL LANDRY MD Dec 29, 2020 17:10
[2020-12-29] MEDS ORDERED: DEXAMETHASONE SOD PHOS 4 MG/ML VIAL IVP ONE (17:15)
--- NOTE | 2020-12-30 14:53 | NUR ---
IP: Informed pt of negative covid test. Pt verbalized understanding.
== END 2020-12-29 17:35 | disposition home or self-care (01) ==
LOC: ER 14:31
DX: F41.9 Anxiety disorder, unspecified (principal); Z20.822 Contact with and (suspected) exposure to COVID-19; R06.02 Shortness of breath; R05 Cough; R07.89 Other chest pain; F17.200 Nicotine dependence, unspecified, uncomplicated
CPT/HCPCS: 36415; 71275; 80053; 81025; 82962; 83880; 84484; 85025; 93005; 99285; Q9967; U0003; U0005